=== PATIENT | male | born 1950 | race Caucasian/White ===

== ENCOUNTER → 2018-12-30 | Outpatient (CLI) | payer MEDICARE, OTHER ==
[~2018-12-30] MED LIST: ATEN25 PO; Aspir 8181 MG PO; B-1100 MG PO; Bactrim Ds Tab1 EACH PO; CEPH500 PO; CLON.2 PO; COMPAZINE10 MG PO; FOLI1 PO; Lopressor 25 mg25 MG PO; OMEP20ER PO; Pacerone400 MG PO; SLEEP MD PO; Sleep Aid25 M1 PO; TESTOSTERO200 MG/1 M IM; TRAZ100 PO; TYLENOL PM PO; ZESTORETIC 20-251 EA PO
[2018-12-30 19:19] LABS: Enteropathogenic E. coli-EPEC Detected (NOT DETECT)
[2018-12-30 19:20] LABS: Adenovirus F 40/41 Not Detected (NOT DETECT); Astrovirus Not Detected (NOT DETECT); Campylobacter Sp Not Detected (NOT DETECT); Cryptosporidium Not Detected (NOT DETECT); Cyclospora Cayetanensis Not Detected (NOT DETECT); E. Coli O157 Not Detected (NOT DETECT); Entamoeba Histolytica Not Detected (NOT DETECT); Enteroaggregative E. coli-EAEC Not Detected (NOT DETECT); Enterotoxigenic E. coli-ETEC Not Detected (NOT DETECT); Giardia Lamblia Not Detected (NOT DETECT); Norovirus GI/GII Not Detected (NOT DETECT); Plesiomonas Shigelloides Not Detected (NOT DETECT); Rotavirus A Not Detected (NOT DETECT); Salmonella Sp Not Detected (NOT DETECT); Sapovirus Not Detected (NOT DETECT); Shiga Toxin-prod E. coli-STEC Not Detected (NOT DETECT); Shigella/Enteroin E. coli-EIEC Not Detected (NOT DETECT); Vibrio Cholerae Not Detected (NOT DETECT); Vibrio Sp Not Detected (NOT DETECT); Yersinia Enterocolitica Not Detected (NOT DETECT)
== END | disposition home or self-care (01) ==
LOC: LAB UCHC 14:26 → LAB SHORT 14:26 → LAB FUT 12-29 09:45
PROVIDERS: Internal Medicine
DX: R19.7 Diarrhea, unspecified (principal)
CPT/HCPCS: 0097U

== ENCOUNTER 2019-02-08 18:35 | Inpatient (IN) | payer MEDICARE, OTHER ==
[~2019-02-08] VITALS: Ht 170.2 cm; Wt 84.0 kg
[~2019-02-08 18:35] MED LIST changes: -ATEN25 PO; -Aspir 8181 MG PO; -B-1100 MG PO; -FOLI1 PO; -Lopressor 25 mg25 MG PO; -OMEP20ER PO; -Pacerone400 MG PO; -SLEEP MD PO; -Sleep Aid25 M1 PO; -TESTOSTERO200 MG/1 M IM; -TRAZ100 PO; -TYLENOL PM PO; -ZESTORETIC 20-251 EA PO
[2019-02-08] MEDS ORDERED: ZESTORETIC 20-251 EA PO (18:47)
[2019-02-08] MEDS ORDERED: OMEP20ER PO (18:47)
[2019-02-08] MEDS ORDERED: ATEN25 PO (18:47)
[2019-02-08] MEDS ORDERED: Aspir 8181 MG PO (18:48)
[2019-02-08 18:56] LABS: BASOPHILS ABSOLUTE AUTO 0.06 K/mm3 (0.00-0.23); BASOPHILS PERCENT AUTO 0 % (0-2); EOSINOPHILS PERCENT AUTO 1 % (0-6); Hematocrit 42.1 % (37.0-53.0); Hemoglobin 14.1 g/dL (13.5-17.5); IMMATURE GRAN ABSOLUTE AUTO 0.08 K/mm3 (0.00-0.10); IMMATURE GRAN PERCENT AUTO 1 % (0-1); LYMPHOCYTES ABSOLUTE AUTO 1.86 K/mm3 (0.84-5.20); LYMPHOCYTES PERCENT AUTO 12 % (21-46); MONOCYTES ABSOLUTE AUTO 1.19 K/mm3 (0.16-1.47); MONOCYTES PERCENT AUTO 8 % (4-13); Mean Corpuscular HGB 30.7 pg (26.0-34.0); Mean Corpuscular HGB Conc 33.5 g/dL (31.5-36.5); Mean Corpuscular Volume 92 fL (80-100); Mean Platelet Volume 9.1 fL (9.1-12.4); NEUTROPHILS ABSOLUTE AUTO 12.55 K/mm3 (1.96-9.15); NEUTROPHILS PERCENT AUTO 79 % (41-73); Platelet Count 361 K/mm3 (150-400); RDW Coefficient Variation 12.7 % (11.7-14.2); RDW Standard Deviation 42.8 fL (35.1-46.3); Red Blood Cell Count 4.59 M/mm3 (4.30-5.90); White Blood Cell Count 15.84 K/mm3 (4.00-11.30)
[2019-02-08 19:10] LABS: International Normalized Ratio 1.06; Prothrombin Time Results 11.2 Sec (9.7-11.5)
[2019-02-08 19:19] LABS: Ethanol (Alcohol), Blood, Med 38 mg/dL
[2019-02-08 19:20] LABS: Troponin I <0.015 ng/mL (0.000-0.040)
[2019-02-08 19:29] LABS: Alanine Aminotransfer (ALT/SGP 35 U/L (12-78); Albumin, Blood 3.5 g/dL (3.4-5.0); Alk Phos 58 U/L (50-136); Anion Gap 5 mmol/L (6-16); Aspartate Aminotrans (AST/SGOT 41 U/L (12-37); Bilirubin, Total 0.3 mg/dL (0.1-1.0); Blood Urea Nitrogen 18 mg/dL (8-24); Bun/Creatinine Ratio 29.2 (12.0-20.0); CO2, Blood 25 mmol/L (21-32); Calcium, Blood 8.1 mg/dL (8.5-10.1); Chloride, Blood 105 mmol/L (98-108); Creatinine, Blood 0.62 mg/dL (0.60-1.20); Globulin, Blood 3.4 g/dL (2.2-4.0); Glomerular Filtration Rate >60 (60-); Glucose, Blood 101 mg/dL (70-99); Magnesium, Blood 1.7 mg/dL (1.6-2.4); Potassium, Blood 4.8 mmol/L (3.5-5.5); Sodium, Blood 135 mmol/L (136-145); Total Protein, Blood 6.9 g/dL (6.4-8.2)
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
[2019-02-08] MEDS ORDERED: TRAZ100 PO (21:47)
[2019-02-08] MEDS ORDERED: TESTOSTERO200 MG/1 M IM (21:49)
[2019-02-08] MEDS ORDERED: Sleep Aid25 M1 PO (21:51)
[2019-02-08] MEDS ORDERED: SLEEP MD PO (21:52)
[2019-02-08] MEDS ORDERED: TYLENOL PM PO (21:53)
--- NOTE | 2019-02-09 00:39 | NUR ---
PATIENT RESTING QUIETLY APPEARS TO BE SLEEPING WITH EVEN RESPIRATIONS. HEART RATE NOW NSR IN THE 90'S HYPOTENSIVE, 250CC NS FLUID CHALLENGE GIVEN. NO URINE OUT PUT AT THIS TIME.
[2019-02-09 01:24] LABS: Source, Urine Voided
[2019-02-09 01:30] LABS: Appearance, Urine Clear (Clear); Bilirubin, Urine Neg (Neg); Blood, Urine 2+ (Neg); Color, Urine Amber (P-Yellow); Glucose Qualitative, Urine Neg (Neg); Ketones, Urine 1+ (Neg); Leukocyte Esterase, Urine 1+ (Neg); Nitrite, Urine Neg (Neg); Protein, Urine 1+ (Neg); Urobilinogen, Urine NORM (Normal)
--- NOTE | 2019-02-09 01:30 | NUR ---
DOCTOR BARTOLO NOTIFIED OF HYPOTENSION AND CHANGE IN HEART RATE. SEE NEW ORDERS. PATIENT AWAKENS TO VERBAL STIMULI, FALLING BACK TO SLEEP WHEN UNDISTURBED.
[2019-02-09 01:37] LABS: Bacteria Mod /hpf; Red Blood Cells, Urine 0-2 /hpf (0-2); Squamous Epithelial Cells Not Seen /hpf (Few); White Blood Cells, Urine 0-2 /hpf (0-5)
[2019-02-09 01:42] LABS: U Amphetamine Screen Not Detected; U Barbituate Screen Not Detected; U Benzodiazapine Screen DETECTED; U Buprenorphine Screen Not Detected; U Cannabinoids Screen Not Detected; U Cocaine Screen Not Detected; U Methadone Screen Not Detected; U Methamphetamine Screen Not Detected; U Opiates Screen Not Detected; U Oxycodone Screen Not Detected; U Phencyclidine Screen Not Detected; U Propoxyphene Screen Not Detected
[2019-02-09 04:28] LABS: Anion Gap 6 mmol/L (6-16); Blood Urea Nitrogen 14 mg/dL (8-24); Bun/Creatinine Ratio 23.4 (12.0-20.0); CO2, Blood 28 mmol/L (21-32); Calcium, Blood 7.8 mg/dL (8.5-10.1); Chloride, Blood 104 mmol/L (98-108); Glomerular Filtration Rate >60 (60-); Glucose, Blood 98 mg/dL (70-99); Sodium, Blood 138 mmol/L (136-145)
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
--- NOTE | 2019-02-09 08:00 | NUR ---
INITIAL ASSESSMENT PATIENT RESTING QUIETLY IN BED UPON ENTERING ROOM. ECHO COMPLETED. PATIENT ALERT AND ORIENTED X 4, AFEBRILE. PATIENT FLAT, WITHDRAWN, CALM, COOPERATIVE. CIWA SCORE OF 1. PATIENT COMPLAINS OF 1/10 CHRONIC BACK AND NECK PAIN. PRN TYLENOL GIVEN. PATIENT DECREASED FROM 2 L NC TO RA- REMAINS SATTING 90% AND GREATER. WHEEZES NOTED IN UPPER LUNG LOBES. LOWER LOBES DIMINISHED. PATIENT REPORTS OCCASIONAL PRODUCTIVE COUGH FOR LAST COUPLE MONTHS. PATIENT REPORTS MODERATE AMOUNT OF THICK SPUTUM IN VARIED COLORS. PATIENT REPORTS COUGH STARTED AFTER STARTING CHANTIX TO QUIT SMOKING. PATIENT IN SR, HR 70S TO 90S. BP STABLE. SBP 105-128. NIGHT RN REPORTS PATIENT CONVERTED FROM SVT AROUND 0100 IN THE MORNING. ABDOMEN MILDLY DISTENDED, SOFT, NONTENDER, WITH HYPERACTIVE BS. PATIENT REPORTS THAT HE HAD OUTPATIENT COLONOSCOPY SCHEDULED HAS LIQUID STOOLS EVERY MORNING. URINE JENNIFER IN COLOR. PATIENT USING BEDSIDE URINAL INDEPENDENTLY. SCATTERED BRUISING NOTED. ABRASION NOTED TO R SIDE OF FOREHEAD FROM FALL AT HOME BEFORE ADMIT. OLD SCAR TO LEFT SIDE OF CHEST. RBKA- PROSTHESIS IN ROOM. NAILS CLUBBED. NS INFUSING AT 150 MLS/ HOUR, AMIODARONE AT 0.5 MG/ MINUTE. BED LOW, CALL LIGHT IN REACH. WILL CONTINUE TO MONITOR PATIENT FREQUENTLY THROUGHOUT SHIFT.
--- NOTE | 2019-02-09 08:52 | NUR ---
Echocardiogram completed.
--- NOTE | 2019-02-09 11:10 | NUR ---
DR. MORSE IN ROOM TO SEE PATIENT. INFORMED THAT PATIENT CONVERTED TO SR AROUND 0100 AFTER SMALL FLUID BOLUS AND WHILE ON AMIO DRIP PER SR SOLUTIONS CONSULTANT RN. STATED THAT HE WILL ORDER FOR AMIO DRIP TO BE DC'D AND FOR PO AMIO TO BE STARTED. NS DC'D BPS HAVE BEEN STABLE AND PATIENT IS EATING AND DRINKING WELL. ORDERS RECEIVED.
--- NOTE | 2019-02-09 11:19 | NUR ---
SHIFT ASSESSMENT PATIENT HAS REMAINED ALERT AND ORIENTED, CACHIL DEHE. PATIENT'S VITAL SIGNS HAVE REMAINED STABLE. PATIENT HAS REMAINED IN SR. PATIENT DID NOT HAVE BM YET THIS AM. PATIENT REMAINS VOIDING JENNIFER COLORED URINE. FORGE UTILITY WORKER IN TO SEE PATIENT. REPORT GIVEN TO ASSUMING NURSE, WESTON JEFFRIES.
--- NOTE | 2019-02-09 12:18 | NUR ---
ASSUMED CARE OF PT FROM BERNIE RN PT. ALERT AND ORIENTED AT THIS TIME. SLIGHT TREMOR NOTED. FAN PROVIDED PER PT. REQUEST. PT. SITTING UP IN BED WATCHING TV. AMIODARONE GTT DC'D PER DR. MORSE. PT. HR 80S, NSR. VSS AT THIS TIME. PT. NOW PCU STATUS. CALL LIGHT IN REACH, FRESH ICE WATER PROVIDED. BED IN LOW POSITION.
--- NOTE | 2019-02-09 16:00 | NUR ---
UPDATE PT. REQUESTING SOMETHING TO HELP HIM RELAX, PT REPORTS THAT HE IS JUST FEELING ANXIOUS AND RESTLESS IN BED. CIWA REMAINS BELOW 5, MED WITH LIBRIUM AT THIS TIME.
--- NOTE | 2019-02-09 18:04 | NUR ---
SHIFT SUMMARY PT. REMAINS ALERT AND ORIENTED THIS PM. PT. REMAINS IN NSR, HR IN THE 80S. PT. DENIES PAIN T/O SHIFT. MED ONCE WITH LIBRIUM FOR ANXIETY AND RESTLESSNESS. PT VSS T/O SHIFT. NADN. CALL LIGHT IN REACH. VOIDS USING URINAL. REPORT TO ONCOMING RN.
--- NOTE | 2019-02-09 19:49 | NUR ---
RECEIVED REPORT FROM AMANDA ONTIVEROS IN ICU. PT TO ROOM VIA BED, SBA TO BED AT 1850. PT RESTING IN BED. NO S/Sx OF DISTRESS NOTED. REPORT GIVEN TO ONCOMING RN.
[2019-02-10 04:34] LABS: Albumin, Blood 3.2 g/dL (3.4-5.0); Anion Gap 5 mmol/L (6-16); Blood Urea Nitrogen 9 mg/dL (8-24); Bun/Creatinine Ratio 14.7 (12.0-20.0); CO2, Blood 29 mmol/L (21-32); Calcium, Blood 8.2 mg/dL (8.5-10.1); Chloride, Blood 105 mmol/L (98-108); Creatinine, Blood 0.61 mg/dL (0.60-1.20); Glomerular Filtration Rate >60 (60-); Glucose, Blood 88 mg/dL (70-99); Magnesium, Blood 1.9 mg/dL (1.6-2.4); Phosphorus, Blood 3.1 mg/dL (2.5-4.9); Potassium, Blood 3.6 mmol/L (3.5-5.5); Sodium, Blood 139 mmol/L (136-145)
--- NOTE | 2019-02-10 04:42 | NUR ---
SHIFT SUMMARY NO ACUTE CHANGES THIS SHIFT. PT HR HAS REMAINED NSR W PVC'S. PT RECEIVED HIS HS PO AMIODARONE, AND METOPROLOL. PT DENIES DIZZINESS. VITALS STABLE INDEPENDENT WITH URINAL, VOIDING WITHOUT DIFFICULTY. MEDICATED X1 FOR CHORNIC NECK AND BACK PAIN. PT RECEIVED TRAZADONE FOR SLEEP THIS SHIFT, AND STATES EFFECTIVE. PLAN IS FOR DC TODAY, PT AWARE OF PLAN. WILL CONTINUE TO MONITOR AND REPORT TO ONCOMING RN.
[2019-02-10] MEDS ORDERED: Lopressor 25 mg25 MG PO (10:59)
[2019-02-10] MEDS ORDERED: Pacerone400 MG PO ×2 (11:01→11:02)
[2019-02-10] MEDS ORDERED: FOLI1 PO (11:02)
[2019-02-10] MEDS ORDERED: B-1100 MG PO (11:04)
--- NOTE | 2019-02-10 13:41 | NUR ---
discharge summary pt a&o x4. calm and cooperative with care. pt anxious to leave. pt reports arthitic pain, asking for ibuporfen, pt notfied Dr Goodson, no new orders, pt refuses all other pain medications. pt denies sob, nausea, dizziness/lightheadedness, chest pain and palpatations. pt receiving po amiodarone and metoprolol for rhythm/rate control. vss. no other acute changes noted. pt educated on discharge instructions, medications and follow up appointments set up. [facility], per pt request. pt left room at 1130 via wheelchair. pt stable upon discharge.
== END 2019-02-10 11:30 | disposition home or self-care (01) | DRG 309 ==
LOC: ER 18:35 → ICUW 20:33 → PCU 02-09 18:46
PROVIDERS: Emergency Medicine; Internal Medicine; ADMIT Hospitalist
DX: I47.1 Supraventricular tachycardia (principal); E87.1 Hypo-osmolality and hyponatremia; Z79.82 Long term (current) use of aspirin; Z89.511 Acquired absence of right leg below knee; I10 Essential (primary) hypertension; E78.5 Hyperlipidemia, unspecified; K21.9 Gastro-esophageal reflux disease without esophagitis; F17.210 Nicotine dependence, cigarettes, uncomplicated; I95.9 Hypotension, unspecified; D72.829 Elevated white blood cell count, unspecified; F10.10 Alcohol abuse, uncomplicated; E86.0 Dehydration; S00.81XA Abrasion of other part of head, initial encounter; W07.XXXA Fall from chair, initial encounter; Y93.9 Activity, unspecified; Y92.008 Other place in unspecified non-institutional (private) residence as the place of occurrence of the external cause; I05.9 Rheumatic mitral valve disease, unspecified; Y90.1 Blood alcohol level of 20-39 mg/100 ml
CPT/HCPCS: 36415; 70450; 71045; 80048; 80053; 80069; 81001; 83735; 83880; 84443; 84484; 85025; 85610; 87081; 93005; 93010; 93306; 96365; 96367; 96375; 96376; 99285-25; A9270; G0480; J0153; J0282; J1650; J2060; J2405; J3475; J7030; J7060

== ENCOUNTER 2019-06-14 16:48 | Emergency (ER) | payer MEDICARE, OTHER ==
[~2019-06-14] VITALS: Ht 170.2 cm; Wt 81.7 kg
[~2019-06-14 16:48] MED LIST changes: +ATEN25 PO; +Aspir 8181 MG PO; +B-1100 MG PO; +FOLI1 PO; +Lopressor 25 mg25 MG PO; +OMEP20ER PO; +Pacerone400 MG PO; +SLEEP MD PO; +Sleep Aid25 M1 PO; +TESTOSTERO200 MG/1 M IM; +TRAZ100 PO; +TYLENOL PM PO; +ZESTORETIC 20-251 EA PO
[2019-06-14 17:37] LABS: BASOPHILS ABSOLUTE AUTO 0.07 K/mm3 (0.00-0.23); BASOPHILS PERCENT AUTO 1 % (0-2); EOSINOPHILS ABSOLUTE AUTO 0.13 K/mm3 (0.00-0.68); EOSINOPHILS PERCENT AUTO 2 % (0-6); Hematocrit 49.1 % (37.0-53.0); Hemoglobin 15.8 g/dL (13.5-17.5); IMMATURE GRAN ABSOLUTE AUTO 0.03 K/mm3 (0.00-0.10); IMMATURE GRAN PERCENT AUTO 0 % (0-1); LYMPHOCYTES ABSOLUTE AUTO 2.36 K/mm3 (0.84-5.20); LYMPHOCYTES PERCENT AUTO 28 % (21-46); MONOCYTES ABSOLUTE AUTO 0.79 K/mm3 (0.16-1.47); MONOCYTES PERCENT AUTO 9 % (4-13); Mean Corpuscular HGB 29.2 pg (26.0-34.0); Mean Corpuscular HGB Conc 32.2 g/dL (31.5-36.5); Mean Corpuscular Volume 91 fL (80-100); Mean Platelet Volume 10.5 fL (9.1-12.4); NEUTROPHILS ABSOLUTE AUTO 5.09 K/mm3 (1.96-9.15); NEUTROPHILS PERCENT AUTO 60 % (41-73); Platelet Count 240 K/mm3 (150-400); RDW Coefficient Variation 12.4 % (11.7-14.2); RDW Standard Deviation 41.3 fL (35.1-46.3); Red Blood Cell Count 5.42 M/mm3 (4.30-5.90); White Blood Cell Count 8.47 K/mm3 (4.00-11.30)
[2019-06-14] MEDS ORDERED: Depo-Testos200 MG/ML IM (17:39)
[2019-06-14] MEDS ORDERED: TRAZODONE TAB 100 (17:39)
[2019-06-14] MEDS ORDERED: OMEPRAZOLE CAP 20M (17:39)
[2019-06-14] MEDS ORDERED: MONDOXYNE NL100 MG PO (17:39)
[2019-06-14] MEDS ORDERED: IBU (17:39)
[2019-06-14] MEDS ORDERED: LISINOPRIL TAB 20M (17:39)
[2019-06-14] MEDS ORDERED: METOPROLOL TART25 MG PO (17:39)
[2019-06-14] MEDS ORDERED: PRINIVIL10 MG PO (17:39)
[2019-06-14 17:59] LABS: Alanine Aminotransfer (ALT/SGP 18 U/L (12-78); Albumin, Blood 3.8 g/dL (3.4-5.0); Albumin/Globulin Ratio 1.1 (0.8-1.8); Alk Phos 64 U/L (50-136); Anion Gap 8 mmol/L (6-16); Aspartate Aminotrans (AST/SGOT 15 U/L (12-37); Bilirubin, Total 0.3 mg/dL (0.1-1.0); Blood Urea Nitrogen 9 mg/dL (8-24); Bun/Creatinine Ratio 11.7 (12.0-20.0); CO2, Blood 27 mmol/L (21-32); Calcium, Blood 8.6 mg/dL (8.5-10.1); Chloride, Blood 106 mmol/L (98-108); Creatinine, Blood 0.77 mg/dL (0.60-1.20); Ethanol (Alcohol), Blood, Med 264 mg/dL; Globulin, Blood 3.6 g/dL (2.2-4.0); Glomerular Filtration Rate >60 (60-); Glucose, Blood 95 mg/dL (70-99); Potassium, Blood 3.1 mmol/L (3.5-5.5); Sodium, Blood 141 mmol/L (136-145); Total Protein, Blood 7.4 g/dL (6.4-8.2)
== END 2019-06-14 18:37 | disposition home or self-care (01) ==
LOC: ER 16:48
PROVIDERS: Emergency Medicine
DX: F10.129 Alcohol abuse with intoxication, unspecified (principal); E87.6 Hypokalemia; Z79.899 Other long term (current) drug therapy; Z79.82 Long term (current) use of aspirin; Z87.891 Personal history of nicotine dependence; Y90.8 Blood alcohol level of 240 mg/100 ml or more; W18.30XA Fall on same level, unspecified, initial encounter
CPT/HCPCS: 36415; 80053; 85025; 93005; 93010; 99284-25; G0480

== ENCOUNTER 2020-05-16 11:12 | Inpatient (IN) | payer MEDICARE, OTHER ==
[~2020-05-16] VITALS: Ht 170.2 cm; Wt 78.9 kg
[~2020-05-16 11:12] MED LIST changes: +Depo-Testos200 MG/ML IM; +IBU; +LISINOPRIL TAB 20M; +METOPROLOL TART25 MG PO; +MONDOXYNE NL100 MG PO; +OMEPRAZOLE CAP 20M; +PRINIVIL10 MG PO; +TRAZODONE TAB 100
[2020-05-16 11:38] LABS: BASOPHILS ABSOLUTE AUTO 0.06 K/mm3 (0.00-0.23); BASOPHILS PERCENT AUTO 0 % (0-2); EOSINOPHILS ABSOLUTE AUTO 0.14 K/mm3 (0.00-0.68); EOSINOPHILS PERCENT AUTO 1 % (0-6); Hematocrit 41.2 % (37.0-53.0); Hemoglobin 12.9 g/dL (13.5-17.5); IMMATURE GRAN PERCENT AUTO 1 % (0-1); LYMPHOCYTES ABSOLUTE AUTO 1.57 K/mm3 (0.84-5.20); LYMPHOCYTES PERCENT AUTO 9 % (21-46); MONOCYTES ABSOLUTE AUTO 2.07 K/mm3 (0.16-1.47); MONOCYTES PERCENT AUTO 11 % (4-13); Mean Corpuscular HGB 26.5 pg (26.0-34.0); Mean Corpuscular HGB Conc 31.3 g/dL (31.5-36.5); Mean Corpuscular Volume 85 fL (80-100); Mean Platelet Volume 9.1 fL (9.1-12.4); NEUTROPHILS ABSOLUTE AUTO 14.62 K/mm3 (1.96-9.15); NEUTROPHILS PERCENT AUTO 79 % (41-73); Platelet Count 593 K/mm3 (150-400); Red Blood Cell Count 4.87 M/mm3 (4.30-5.90); White Blood Cell Count 18.56 K/mm3 (4.00-11.30)
[2020-05-16 11:55] LABS: International Normalized Ratio 1.17; Prothrombin Time Results 12.4 Sec (9.7-11.5)
[2020-05-16 12:24] LABS: Alanine Aminotransfer (ALT/SGP 19 U/L (12-78); Albumin, Blood 2.5 g/dL (3.4-5.0); Albumin/Globulin Ratio 0.6 (0.8-1.8); Alk Phos 84 U/L (50-136); Anion Gap 10 mmol/L (6-16); Aspartate Aminotrans (AST/SGOT 10 U/L (12-37); Bilirubin, Total 0.6 mg/dL (0.1-1.0); Blood Urea Nitrogen 18 mg/dL (8-24); Bun/Creatinine Ratio 19.7 (12.0-20.0); CO2, Blood 28 mmol/L (21-32); Calcium, Blood 8.7 mg/dL (8.5-10.1); Chloride, Blood 98 mmol/L (98-108); Creatinine, Blood 0.91 mg/dL (0.60-1.20); Glomerular Filtration Rate >60 (60-); Glucose, Blood 95 mg/dL (70-99); Potassium, Blood 3.3 mmol/L (3.5-5.5); Sodium, Blood 136 mmol/L (136-145); Total Protein, Blood 6.5 g/dL (6.4-8.2); Troponin I 0.038 ng/mL (0.000-0.040)
[2020-05-16 12:59] LABS: Influenza A, PCR Negative (NEGATIVE); Influenza B, PCR Negative (NEGATIVE); Resp Syncytial Virus, PCR Negative (NEGATIVE); SARS-Cov-2 (COVID-19) PCR, MMC Negative (NEGATIVE)
[2020-05-16] MEDS ORDERED: METOPROLOL TART50 M1 PO (13:29)
[2020-05-16] MEDS ORDERED: DEPO-TESTO200 MG/11 IM (13:29)
[2020-05-16] MEDS ORDERED: FLUTICASONE-SA1 EAC9 INH (13:29)
[2020-05-16] MEDS ORDERED: TRAZ100 PO (13:30)
[2020-05-16] MEDS ORDERED: OXYC10TA19 PO (13:30)
[2020-05-16] MEDS ORDERED: ANORO ELLIPTA1 EACH INH (13:30)
[2020-05-16] MEDS ORDERED: IBUP600 PO (13:31)
[2020-05-16] MEDS ORDERED: BUPROPION XL150 M1 PO (13:31)
[2020-05-16] MEDS ORDERED: LISINOPRIL-HCT1 EAC1 PO (13:32)
[2020-05-16] MEDS ORDERED: OMEP20ER PO (13:32)
--- NOTE | 2020-05-16 18:26 | NUR ---
ADMIT NOTE PT TO ROOM AT 1650; PT FEBRILE, TACHYPNIC, ELEVATED BP AND HR; NS; MAGNESIUM AND POTASSIUM INFUSING. 4 PERSON ASSIST TRANSFER TO BED. PT REPORS GENERAZLIZED PAIN, MEDICATED PER EMAR. FEBRILE, MEDICATED WITH TYLNEOL AND REMOVED BLANKETS. HR AFLUTTER 150'S STARTED CARDIZEM GTT; WITH MINIMAL RESPONSE. PT AND DAUGHTER ORIENTED TO ROOM AND CALL LIGHT; EDUCATED ON FALL RISK AND BEDREST ORDERS. PT REPORTS CHRONIC BACK AND LEG PAIN IN ADDITIONED TO GENERALIZED PAIN. A&Ox4; ANXIOUS BUT COOPERATIVE WITH CARE. PT SOB AT REST; EDUCATED ON PURSED LIP BREATHING AND DEEP BREATHING AND COUGHING. PRODUCTIVE COUGH NOTED; THIN YELLOW MUCUS MIXED WITH THICK WHITE MUCUS. PT DENIES DIZZINESS AND NAUSEA. RIGHT BKA; PT USES PROTHETIC; AT BED SIDE. GLASS, HEARING AIDS AND PARTIAL UPPER AND LOWER DENTURES WITH PATIENT. PT REPORTS INCREASE SOB AND COUGH OVER THE LAST COUPLE OF WEEKS; WEAKNESS AND GENERALIZED DISCOMFORT; BRUISING EASILY. AT PCP OFFICE WTIH TACHYCARDIA AND SENT VIA AMBULENCES. WILL CONTINUE TO MONITOR.
--- NOTE | 2020-05-16 19:12 | NUR ---
DR SHAIKH AT BEDSIDE THIS EVENING; NEW ORDER FOR CARDIAC DIET FOR DINNER AND NPO AT MIDNIGHT FOR POSSIBLE PROCEDURE. CLARIFIED ORDER FOR SOLU-MEDROL, STARTED TONIGHT AND Q8 AFTER.
--- NOTE | 2020-05-16 22:04 | NUR ---
PATIENT REPORTS "I'M THINKING ABOUT CALLING HOSPICE", "I'VE WATCHED 10 FRIENDS ". PATIENT REPORTS HE ISNT FEELING BETTER AND "IT WONT HELP THE LUNG CANCER".
[2020-05-17 04:18] LABS: BASOPHILS ABSOLUTE AUTO 0.03 K/mm3 (0.00-0.23); BASOPHILS PERCENT AUTO 0 % (0-2); EOSINOPHILS PERCENT AUTO 0 % (0-6); Hematocrit 34.4 % (37.0-53.0); Hemoglobin 10.9 g/dL (13.5-17.5); IMMATURE GRAN ABSOLUTE AUTO 0.17 K/mm3 (0.00-0.10); IMMATURE GRAN PERCENT AUTO 1 % (0-1); LYMPHOCYTES PERCENT AUTO 3 % (21-46); MONOCYTES ABSOLUTE AUTO 1.18 K/mm3 (0.16-1.47); MONOCYTES PERCENT AUTO 5 % (4-13); Mean Corpuscular HGB 26.6 pg (26.0-34.0); Mean Corpuscular HGB Conc 31.7 g/dL (31.5-36.5); Mean Corpuscular Volume 84 fL (80-100); Mean Platelet Volume 9.1 fL (9.1-12.4); NEUTROPHILS ABSOLUTE AUTO 22.44 K/mm3 (1.96-9.15); NEUTROPHILS PERCENT AUTO 91 % (41-73); Platelet Count 539 K/mm3 (150-400); RDW Coefficient Variation 13.9 % (11.7-14.2); RDW Standard Deviation 42.9 fL (35.1-46.3); White Blood Cell Count 24.62 K/mm3 (4.00-11.30)
[2020-05-17 04:31] LABS: International Normalized Ratio 1.17; Prothrombin Time Results 12.4 Sec (9.7-11.5)
[2020-05-17 04:46] LABS: Alanine Aminotransfer (ALT/SGP 16 U/L (12-78); Albumin, Blood 2.3 g/dL (3.4-5.0); Albumin/Globulin Ratio 0.6 (0.8-1.8); Alk Phos 72 U/L (50-136); Anion Gap 7 mmol/L (6-16); Aspartate Aminotrans (AST/SGOT 12 U/L (12-37); Bilirubin, Total 0.5 mg/dL (0.1-1.0); Blood Urea Nitrogen 14 mg/dL (8-24); Bun/Creatinine Ratio 21.4 (12.0-20.0); CO2, Blood 27 mmol/L (21-32); Calcium, Blood 8.3 mg/dL (8.5-10.1); Chloride, Blood 101 mmol/L (98-108); Creatinine, Blood 0.65 mg/dL (0.60-1.20); Globulin, Blood 3.7 g/dL (2.2-4.0); Glomerular Filtration Rate >60 (60-); Glucose, Blood 137 mg/dL (70-99); Potassium, Blood 3.7 mmol/L (3.5-5.5); Sodium, Blood 135 mmol/L (136-145)
--- NOTE | 2020-05-17 06:23 | NUR ---
SUMMARY PATIENT IS ALERT AND ORIENTED. PATIENTS HAS STATED BEING IN PAIN MOST OF THE NIGHT, CALLED FOR PAIN MANAGEMENT, MEDICATED, SEE EMAR. REPOSITIONED, AND OFFERED HEAT/ICE FOR COMFORT. PATIENT STATED AT 2155 05/16 THAT HE WAS CONSIDERING HOSPICE. PATIENT ALSO STATED HE WAS CONSIDERING GOING HOME BEACUSE HE WOULD BE MORE COMFORTABLE THERE. PATIENT IS COOPERATIVE WITH CARE. EKG DONE AT 0500, SEE CHART. 02 SATS >90 ON 2L VIA NC. HR UP TO 160s, CARDIZEM gtt INF ENTIRE SHIFT, LOPRESSOR GIVEN SEE EMAR, HR WOULD COME DOWN TO 130s. CALL LIGHT IN REACH.
--- NOTE | 2020-05-17 15:23 | NUR ---
Echocardiogram completed.
--- NOTE | 2020-05-17 17:24 | NUR ---
SHIFT SUMMARY PT A&Ox3; FORGETUL AT TIMES. PT RESTING IN BED DURING SHIFT. BEDREST. PT HR 110-160'S DURING SHIFT, ON CARDIZEM AND DIGOXIN. PT SOB WITH EXERTION, SPO2 >90% ON 2L 02 VIA NC. PT REPORTS CHRONIC BACK AND LEG PAIN AND GENERALIZED PAIN; MEDICATED PER EMAR. PT DENIES NAUSEA, DIZZINESS AND CHEST PAIN. BP TRENDING DOWN THIS AFTERNOON, TITRATED CARDIZEM TO MAINTAIN BP. PT RECEIIVNG IV STEROIDS, IV ANTIBIOTICS. OTHER VSS. NO OTHER ACUTE CHANGES NOTED DURING SHIFT. WILL CONTINUE TO MONITOR UNTIL REPORT GIVEN TO ONCOMING RN.
--- NOTE | 2020-05-18 02:19 | NUR ---
PAIN UPDATE PT PAIN ELEVATED WITH NO RELIEF FROM OXYCODONE, UNABLE TO GIVE TORDAL TILL 0300. DR. CAPPS NOTIFIED. SEE ORDERS FOR ADDITIONAL PAIN MEDICATION. WILL CONTINUE TO MONITOR PAIN.
[2020-05-18 03:49] LABS: BASOPHILS ABSOLUTE AUTO 0.02 K/mm3 (0.00-0.23); BASOPHILS PERCENT AUTO 0 % (0-2); EOSINOPHILS PERCENT AUTO 0 % (0-6); Hematocrit 30.8 % (37.0-53.0); IMMATURE GRAN ABSOLUTE AUTO 0.22 K/mm3 (0.00-0.10); IMMATURE GRAN PERCENT AUTO 1 % (0-1); LYMPHOCYTES ABSOLUTE AUTO 0.85 K/mm3 (0.84-5.20); LYMPHOCYTES PERCENT AUTO 3 % (21-46); MONOCYTES ABSOLUTE AUTO 1.07 K/mm3 (0.16-1.47); MONOCYTES PERCENT AUTO 4 % (4-13); Mean Corpuscular HGB 27.2 pg (26.0-34.0); Mean Corpuscular HGB Conc 32.5 g/dL (31.5-36.5); Mean Corpuscular Volume 84 fL (80-100); Mean Platelet Volume 9.2 fL (9.1-12.4); NEUTROPHILS ABSOLUTE AUTO 24.45 K/mm3 (1.96-9.15); NEUTROPHILS PERCENT AUTO 92 % (41-73); Platelet Count 474 K/mm3 (150-400); RDW Coefficient Variation 13.9 % (11.7-14.2); RDW Standard Deviation 42.7 fL (35.1-46.3); Red Blood Cell Count 3.67 M/mm3 (4.30-5.90); White Blood Cell Count 26.61 K/mm3 (4.00-11.30)
[2020-05-18 04:30] LABS: Digoxin (Lanoxin) 1.85 ug/mL (0.80-2.00)
--- NOTE | 2020-05-18 05:38 | NUR ---
SHIFT SUMMARY PATIENT IS A&O X3. ON 2 L VIA NC. WHEEZING HEARD THROUGHOUT LUNGS. PT HAS PRODUCTIVE LOOSE COUGH. VSS THIS SHIFT, WITH BP TAKEN ON R FOREARM. REDNESS NOTED THROUGHOUT CHEST AND BACK. TELE-SINUS RHYTHM WITH HR IN THE 90s. TITRATED OFF CARDIZEM GTT AND FIRST PO DOSE GIVE. CURRENTLY NS INFUSING @75ML/HR WITH IV ANTIBIOTIC ZOSYN CONCURRENTLY RUNNING @12.5ML/HR IN R WRIST IV. L FOREARM AND R FOREARM IVs SALINE LOCKED. PRN PAIN MEDS WERE GIVEN WITH NO RELIEF. SEE ORDERS FOR ADDITIONAL IV FENTYNAL Q4 ADDED VIA DR. CAPPS. PT ABLE TO GET REST AFTER PAIN DECREASED. NPO AT MIDNIGHT THIS SHIFT FOR PLANNED BRONCHOSCOPY WITH BIOPSY ON .
--- NOTE | 2020-05-18 11:21 | NUR ---
Pt was taken for bronchoscopy with biopsy at this time. The pt's daughter Alie called and wanted to speak with me regarding the pt's condition and asked if palliative care had seen him yet. I spoke with her at length about her expectations and involvement with his care. Pt lives with her here in [place], and she said that she is ready and willing to be involved in any meetings at the hospital so that she can better understand the plan of care and that she is also ready to take care of him at home on hospice if that is what the pt decides to do. She said that she spoke with Dr. Jose when the pt was admitted, and that she appreciates honest, straightforward conversation and wants the pt to hear it straightforwardly from caregivers as well.
--- NOTE | 2020-05-18 11:24 | NUR ---
Spoke with Christine Martínez regarding the information from Alie and requests to have conversations with palliative care. Christine is planning to call her today.
--- NOTE | 2020-05-18 12:14 | NUR ---
05/18/20 1214 Natalya Holloway History, Chart, Medications and Allergies reviewed before start of procedure. PATIENT CONFIRMS NPO STATUS AND AGREES WITH SCHEDULED PROCEDURE. MONITOR INTACT WITH CONTINUOUS PULSE OXIMETRY AND INTERMITTENT BP. O2 IN PLACE AT 2LPM. INCREASED TO 5L FOR NUMBING PROCESS.
--- NOTE | 2020-05-18 14:23 | NUR ---
The pt does not open his eyes to verbal or gentle tactile stimulation. Vital signs are stable. Lying supine with even , unlabored respirations, HOB elevated 30 degrees. Contiuous oxymetry monitoring. O2 delivery at 3 l/min, spo2 93-95%. Telephone report was received from Carri from Bronchoscopy room. PCU RNs Diana and Kamala received the pt into room pcu 5 and passed verbal report to me.
--- NOTE | 2020-05-18 15:26 | NUR ---
Jarrod is awakening now, still groggy and speech is slow and his eyelids are heavy. His daughter Alie called on the cell phone and said that she was on her way in to visit him. He asks me if his biopsy was done, and if this is still the same day that he left to have it done. Vital signs are stable. He has no complaints of pain at this time. Occasionally has a very harsh , loose cough. Was able to drink some ice water and take an oral cardizem.
--- NOTE | 2020-05-18 16:46 | NUR ---
Pt's daughter Alie was here, and left to go about an hour ago. The pt was awake, talking with her, but still forgetful, and sleepy. C/O of pain, and was given IV toradol as ordered prn. He ate all of his dinner tray, and is now sleeping. HOB elevated 50 degrees. Respirations even, unlabored.
--- NOTE | 2020-05-18 18:22 | NUR ---
Pt awoke at 1750, tachypneic, audibly wheezing, and c/o pain. Respiratory Therapist called and Dakota was quickly at the bedside to give a breathing tx. the pt was medicated with pain medication per PRN orders and repositioned at his request with a pillow under his right hip. Shortly afterwards he appeared to be more comfortable, and was talking rapidly to Dakota. He is forgetful, and keeps asking questions and apoligizing that he can't remember what was just explained to him. Reassured the patient and encouraged him to call if he has any needs for difficulty breathing, pain relief, etc. Call light is within his reach. He c/o feeling too warm so blanket was removed and cool damp washcloth was applied to his forehead.
--- NOTE | 2020-05-19 02:30 | NUR ---
KRATOM - PAIN DURING CONVERSATION WITH PATIENT ON HOW HE MANAGES PAIN AT HOME HE VERBALIZED "I WANTED TO TELL THE DOCTOR I HAVE BEEN TAKING KRATOM, AND TOOK IT THE MORNING I CAME INTO THE HOSPITAL".
--- NOTE | 2020-05-19 05:18 | NUR ---
SHIFT SUMMARY CARISA IS ALERT TO SELF, SITUATION AND STAFF. HE HAS BEEN VERY PLEASENT AND COOPERATIVE WITH CARE. HE IS FORGETFUL OF TIME AND OFTEN ASKS REPETATIVE QUESTIONS. HE EXPRESSED ANXIETY ABOUT LUNG MASS AND FEARFUL OF "WHAT IS TO COME". VSS THIS SHIFT WITH NO ACUTE CHANGES. TELE - SINUS TACH WITH HR IN THE 90's-100's. WHEEZING HEARD IN UPPER LOBES. PRODUCTIVE COUGH WITH BLOOD TINGED SPUTUM. TITRATED DOWN TO 1L O2 VIA NASAL CANNULA, FROM 3L MAINTAINING ABOVE 92%. DOES NOT RECIEVE O2 AT HOME. PT HAD BRONCHOSCOPY AT NOON YESTERDAY. PAIN WAS MANAGED THIS SHIFT WITH PRN's AND ICE/REPOSITIONING FOR COMFORT. SEE PREVIOUS NOTE ABOUT KRATOM AND PAIN MANAGEMENT AT HOME. NORMAL SALINE RUNNING @75ML/HR IN RIGHT FOREARM IV. CONTINUING TO RECIEVE IV ANTIBIOTICS.
[2020-05-19 06:37] LABS: BASOPHILS ABSOLUTE AUTO 0.04 K/mm3 (0.00-0.23); BASOPHILS PERCENT AUTO 0 % (0-2); EOSINOPHILS PERCENT AUTO 0 % (0-6); Hematocrit 32.5 % (37.0-53.0); Hemoglobin 10.5 g/dL (13.5-17.5); IMMATURE GRAN ABSOLUTE AUTO 0.24 K/mm3 (0.00-0.10); IMMATURE GRAN PERCENT AUTO 1 % (0-1); LYMPHOCYTES ABSOLUTE AUTO 0.66 K/mm3 (0.84-5.20); LYMPHOCYTES PERCENT AUTO 3 % (21-46); MONOCYTES ABSOLUTE AUTO 1.43 K/mm3 (0.16-1.47); MONOCYTES PERCENT AUTO 5 % (4-13); Mean Corpuscular HGB 27.6 pg (26.0-34.0); Mean Corpuscular HGB Conc 32.3 g/dL (31.5-36.5); Mean Corpuscular Volume 85 fL (80-100); Mean Platelet Volume 9.2 fL (9.1-12.4); NEUTROPHILS ABSOLUTE AUTO 24.43 K/mm3 (1.96-9.15); NEUTROPHILS PERCENT AUTO 91 % (41-73); Platelet Count 467 K/mm3 (150-400); RDW Coefficient Variation 13.9 % (11.7-14.2); RDW Standard Deviation 43.2 fL (35.1-46.3); Red Blood Cell Count 3.81 M/mm3 (4.30-5.90)
[2020-05-19 06:55] LABS: Anion Gap 3 mmol/L (6-16); Blood Urea Nitrogen 17 mg/dL (8-24); Bun/Creatinine Ratio 26.1 (12.0-20.0); CO2, Blood 29 mmol/L (21-32); Calcium, Blood 8.6 mg/dL (8.5-10.1); Chloride, Blood 104 mmol/L (98-108); Creatinine, Blood 0.65 mg/dL (0.60-1.20); Glomerular Filtration Rate >60 (60-); Glucose, Blood 134 mg/dL (70-99); Sodium, Blood 136 mmol/L (136-145)
--- NOTE | 2020-05-19 08:15 | NUR ---
pt laying in bed awake a/ox3, having some anxiety, breathing is labored, lungs are very course, wet sounding, turned o2 to 5 liters from 2 as sats were dropping to the 80's, turned iv off as pt sounds fluid overloaded, meds given for pain as he is in distress, this helped some, hrr, tele in place running st per monitor, up to the 120's, trace edema noted to b/l le, ppp+1, cap refill <3sec, vs stable, afebrile, iv sites are clear and patent, btx 4, abd flat soft nontender, voids without diff, skin c/w/d, maew, rbka, call light in reach, Dr. Buckner called to room, recieved order for lasix, all meds given at this time, cxr done, stopped the fluids, charge nurse calling Dr. Jose, and bipap being placed by RT.
--- NOTE | 2020-05-19 10:36 | NUR ---
Case conference with RN earlier today. Pt was on phone with his daughter having a discussion re: care decisions and his wishes. He has had increased respiratory distress, anxiety and pain this am. RN has medicated for s/s per eMAR already with improvement noted. Per my conversation with Alie connor, yesterday, who he is currently on the phone with, she will not be in today because another daughter from [place] will be here to visit. Updated pt's RN today on my conversations with pt and Alie connor, after bronch procedure yesterday afternoon.
--- NOTE | 2020-05-19 11:45 | NUR ---
pt became very anxious again, feels like he can't breath, is escalating, RT went to icu to speak to Dr. Santacruz, he wants him brought to icu, this was done via bed, report given to Talon.
--- NOTE | 2020-05-19 12:30 | NUR ---
ASSUMPTION OF CARE PATIENT TRANSFERRED OVER FROM PCU AT 1132. PATIENT ALERT AND ORIENTED X 4, AFEBRILE. PATIENT HAS COMPLAINTS OF 10/10 PAIN IN THIGHS, NECK, BACK AND "LUNGS WHEN BREATHING". PATIENT ANXIOUS. PATIENT WEAK BUT ABLE TO MOVE ALL EXTREMITIES. R BKA NOTED. PROSTHESIS AT BEDSIDE. PATIENT SATTING 90% AND GREATER ON BIPAP 12/6, RATE 10, 35% FIO2. LUNG SOUNDS COARSE THROUGHOUT. PATIENT SOB WITH EXERTION. BREATHING LABORED AND TACHYPNEIC. PATIENT COUGHING UP LARGE AMOUNTS OF THICK, YELLOW SPUTUM. PATIENT IN ST, HR IN THE LOW 100S. SBP 150S TO 170S. SCD TO LEFT LEG. GI WNL. WNL. PATIENT NEEDS ASSISTANCE USING URINAL. SCARS NOTED TO L CHEST AND ABDOMEN. NAILS CLUBBED. FACE FLUSHED; BACK RED. PRECEDEX STARTED AT 0.2 MCG/ KG/ HOUR TO HELP WITH ANXIETY. PATIENT ORIENTED TO UNIT, ROOM AND CALL LIGHT. BED LOW, CALL LIGHT IN REACH. WILL CONTINUE TO MONITOR PATIENT FREQUENTLY THROUGHOUT SHIFT.
--- NOTE | 2020-05-19 15:21 | NUR ---
Clinical Visit: Called to room by request of pt's visitor today; his daughter, Alie assists with medical decisions - pt wanted her present for this conversation. Pt is alert, oriented. He is severely short of breath: He is able to speak 4-5 words before stopping to catch his breath. He is reporting severe 10/10 pain in his entire body. He states, "I can feel everything. It feels like burning, all over." He reports that the pain medications given to him "hardly touch it [pain level]." He is complaining of disabling anxiety related to medical treatments and new diagnosis. Reviewed pt's current care and treatment. Pt has been told by providers that he is dying. He states, "I either comfortably or I in pain - and I don't want to in pain. I want to at home." Discussed hospice discharge plans. He again repeats his desire to go home for end of life care and requests that he go home as soon as possible. Reviewed pt's values. He states that his most important priority is to have some relief from his pain and his shortness of breath. Reviewed comfort medications; pt reports that comfort plan is what he wants, as he feels as though he has started to suffer. Daughter, Alie, is present for this meeting and agrees with his decision. Reviewed hospice philosophy and hospice discharge. Reviewed comfort plan. Discussed code status and he would like to change his to DNR/DNI, as he does not want resusitation interventions. Additionally, he does not want to pursue palliative cancer treatments, as this would prolong his suffering. Call placed to Dr. Buckner for comfort orders.
--- NOTE | 2020-05-19 16:00 | NUR ---
PATIENT BEING GIVEN PAIN MEDICATIONS ORDERED. PATIENT APPEARS MORE COMFORTABLE THAN BEFORE COMFORT CARE MEDICATIONS ORDERED. PATIENT WITHOUT RESP DISTRESS OR INCREASED WOB. PATIENT CONTINUES TO COUGH UP LARGE AMOUNTS OF THICK, YELLOW SPUTUM. DAUGHTER AT BEDSIDE. BED LOW, CALL LIGHT IN REACH.
--- NOTE | 2020-05-19 17:15 | NUR ---
SHIFT SUMMARY PATIENT REMAINED ALERT AND ORIENTED X 4, PECHANGA. PATIENT REMAINED AFEBRILE. PATIENT ANXIOUS AND SOB WHEN ARRIVED TO UNIT FROM PCU. PATIENT LUNGS COARSE THROUGHOUT. PATIENT STARTED ON BIPAP 12/, RATE OF 10, 35% FIO2. PATIENT HAS SINCE BEEN DECREASED TO 8 L HF NC. PATIENT CURRENTLY WITHOUT SOB OR INCREASED WOB. PATIENT HAS REMAINED SR TO ST, HR 90S TO LOW 100S. SBP 130S TO 180S. NO BM THIS SHIFT. PATIENT EATING REGULAR DIET. REMAINED WNL. NO CHANGE TO SKIN. PRECEDEX ON FOR SHORT TIME DURING SHIFT. DAUGHTER CAME TO SEE PATIENT. PALLIATIVE CARE NURSE IN TO SPEAK TO PATIENT AND DAUGHTER AND PATIENT DECIDED TO CHANGE TO COMFORT CARE AND GO HOME ON HOSPICE TOMORROW. PATIENT STATES THAT HE JUST WANTS TO BE MADE COMFORTABLE AND DOESN'T WANT TO BE IN PAIN ANYMORE. PATIENT APPEARS COMFORTABLE AT THIS TIME. BED LOW, CALL LIGHT IN REACH. PATIENT WILL BE TRANSFERRED TO MEDICAL FLOOR, ROOM 339 SHORTLY.
--- NOTE | 2020-05-19 18:00 | NUR ---
PATIENT SLEEPING SOUNDLY WITH NO SIGNS OF PAIN OR DISCOMFORT.
--- NOTE | 2020-05-19 18:23 | NUR ---
PATIENT SUCCESSFULLY TRANSFERRED TO MEDICAL FLOOR, ROOM 339. PATIENT'S DAUGHTER CALLED AND UPDATED ON TRANSFER.
--- NOTE | 2020-05-19 18:41 | NUR ---
ASSUMED CARE OF PATIENT UPON HIS ARRIVAL FROM ICU AT 1830. STATED PAIN IS ADEQUATELY CONTROLLED AT THIS TIME. ON O2 @ 8 L/MIN HI FLOW NC. ON COMFORT CARE, PLAN IS TO D/C HOME WITH HOSPICE TOMORROW.
--- NOTE | 2020-05-19 20:10 | NUR ---
PT MEDICATED FOR PAIN PER EMAR. NO C/O N&V AT THIS TIME.
--- NOTE | 2020-05-19 22:05 | NUR ---
MEDICATER FOR PAIN.
--- NOTE | 2020-05-20 01:16 | NUR ---
MEDICATER PER EMAR FOR PAIN.
--- NOTE | 2020-05-20 02:40 | NUR ---
PT MEDICATED FOR PAIN
--- NOTE | 2020-05-20 04:05 | NUR ---
PT SLEEPING AT THIS TIME
--- NOTE | 2020-05-20 04:25 | NUR ---
SHIFT SUMMARY PT AOX4 AND A COMFORT CARE PT. PT MEDICATED FOR CHRONIC PAIN PER DR ORDER. PT REQUIRES A HIGH FLOW O2 ON 8L. DYSPNEA ON EXERTION AND HAS A PRODUCTIVE COUGH. PT ALSO C/O PAIN WHEN COUGHING; MEDICATED PER EMAR. BED IS IN THE LOWEST POSITION AND CALL LIGHTS WITHIN REACH.
--- NOTE | 2020-05-20 06:14 | NUR ---
PT MEDICATED PER EMAR.
--- NOTE | 2020-05-20 10:10 | NUR ---
PT IS A&O BUT CONFUSING @ TIMES REGARDING HIS PAIN MEDICATIONS AND DNR STATUS. PT REFUSES TO WEAR DNR BRACLET. PT IS ON HIGH FLOW 02 8L. LUNGS SOUND ARE CONGESTED. TREATED FOR CHRONIC PAIN. PT IS ADAMIT ABOUT GOING HOME TODAY TO BE c HIS FAMILY.
[2020-05-20] MEDS ORDERED: DILT180 PO (12:22)
[2020-05-20] MEDS ORDERED: DIGOX250 MCG PO (12:22)
[2020-05-20] MEDS ORDERED: DOCUZEN 8.6-501 EACH PO (12:23)
[2020-05-20] MEDS ORDERED: TRANSDERM-SCOP1 EAC1 TD (12:23)
[2020-05-20] MEDS ORDERED: GUAI600T33 PO (12:23)
[2020-05-20] MEDS ORDERED: FENTANYL1 EA10 TOP (12:24)
[2020-05-20] MEDS ORDERED: VISBIOME PROBIOTIC PO (12:24)
[2020-05-20] MEDS ORDERED: MORP20L PO (12:25)
[2020-05-20] MEDS ORDERED: LORA.5 PO (12:26)
[2020-05-20] MEDS ORDERED: IPRAT-ALBUT 0.5-3 ML INH (12:37)
[2020-05-20] MEDS ORDERED: ALBU2.5V5 INH (12:38)
[2020-05-20] MEDS ORDERED: PRED20 PO (12:38)
[2020-05-20] MEDS ORDERED: ALBU90OI INH (12:39)
--- NOTE | 2020-05-20 13:25 | NUR ---
SPOKE WITH DISCHARGE PLANNERS REGARDING PT DISCHARGE, PT ON 8L VIA HIGH FLOW NASAL CANNULA HERE AND WILL NEED HOME 02 AND NEBULIZER. WORKERS COMPENSATION SPECIALIST CALLED BACK AND REPORTED PT WILL NEED HOME 02 EVAL. SPOKE WITH ARDEN FROM RT WHO REPORTS HOSPICE WILL COVER AND PT ON COMFORT CARE. ACCORDING TO WORKERS COMPENSATION SPECIALIST PT MENTIONED POSSIBLE TREATMENT YESTERDAY SO THE PLAN IS TO DISCHARGE HOME AND FOR [facility] TO MEET THE PT AT THE HOUSE FOR A CONSULT. ALSO SPOKE WITH CANDIDA FROM PALLIATIVE CARE WHO ALSO REPORTED THIS. AT THIS TIME DISCHARGE TIME CHNAGED TO 1600. SPOKE AGAIN WITH RT WHO SPOKE WITH DR ZULUAGA AND REQUESTED ME UPDATE DR ZULUAGA BUT HE WILL COME UP AND DO THE HOME [address] ZULUAGA UPDATED. SPOKE WITH DAUGHTER REGARDING DISCHARGE AND HOME SCRIPT WILL BE SENT HOME WITH PT.
--- NOTE | 2020-05-20 14:57 | NUR ---
pt having increasing anexiety and airhunger anxious to go hime. desats easily. Review of patient with hospice nurse rudi. He will meet family tonight. Pt may need increased bowel protocol. stuggling to tolerate BM.
[2020-05-20] MEDS ORDERED: CEFP200 PO (15:00)
--- NOTE | 2020-05-20 16:03 | NUR ---
DISCHARGE INSTRUCTIONS REVIEWED WITH PT. CALLED AND UPDATED DAUGHTER DEVONTE MULTIPLE TIMES. PALLIATIVE CARE RN CANDIDA CALLED AND SPOKE WITH [facility] TO NOTIFY OF D/C TIME. PRN ATIVAN AND OXYCODONE GIVEN PRIOR TO DISCHARGE, HARD SCRIPT GIVEN TO PT AND RX FAXED TO [facility] PER DAUGHTER REQUEST. [facility] DELIVERED PORTABLE 02 AND CONCENTRATOR TO HOME. PT DC'D VIA [facility] AT 5252.
== END 2020-05-20 15:52 | disposition hospice, home (50) | DRG 871 ==
LOC: ER 11:12 → PCU 15:08 → ICUE 05-19 11:21 → MEDS 05-19 18:24
PROVIDERS: Emergency Medicine; Family Medicine; Internal Medicine Critical Care Medicine; Nurse Practitioner Acute Care; ADMIT Hospitalist
PROC: 0BB88ZX Excision of Left Upper Lobe Bronchus, Via Natural or Artificial Opening Endoscopic, Diagnostic (ICD-10-PCS; 2020-05-18)
PROC: 0BB98ZX Excision of Lingula Bronchus, Via Natural or Artificial Opening Endoscopic, Diagnostic (ICD-10-PCS; principal; 2020-05-18 12:00)
DX: A41.9 Sepsis, unspecified organism (principal); J18.9 Pneumonia, unspecified organism; I48.92 Unspecified atrial flutter; F11.20 Opioid dependence, uncomplicated; J98.11 Atelectasis; C34.12 Malignant neoplasm of upper lobe, left bronchus or lung; J44.0 Chronic obstructive pulmonary disease with (acute) lower respiratory infection; Z20.828 Contact with and (suspected) exposure to other viral communicable diseases; Z51.5 Encounter for palliative care; G89.4 Chronic pain syndrome; F17.210 Nicotine dependence, cigarettes, uncomplicated; E78.5 Hyperlipidemia, unspecified; K21.9 Gastro-esophageal reflux disease without esophagitis; I10 Essential (primary) hypertension; F32.9 Major depressive disorder, single episode, unspecified; Z89.511 Acquired absence of right leg below knee; Z77.090 Contact with and (suspected) exposure to asbestos; Z86.14 Personal history of Methicillin resistant Staphylococcus aureus infection; E87.6 Hypokalemia
CPT/HCPCS: 0241U; 36415; 71045; 71260; 80048; 80053; 80162; 83605; 83735; 84145; 84443; 84484; 85025; 85610; 85730; 86140; 87040; 87070; 87205; 88305; 88341; 88342; 93005; 93010; 93306; 94640; 94660; 94667; 94668; 94760; 96365-59; 96368; 96375; 96376-59; 99285-25; A9270; J0171; J1160; J1885; J1940; J2250; J2405; J2543; J2920; J3010; J3370; J3475; J3480; J7030; J7050; J7120; Q9967